=== PATIENT | female | born 1990 | race Caucasian/White ===

== ENCOUNTER 2021-04-07 11:49 | Day surgery (SDC) | payer BC ==
[2021-04-07 12:26] VITALS: TEMP 98.7
[2021-04-07] MEDS ORDERED: FERRIC CARBOXYMALTOSE 750 MG in SODIUM CHLORIDE 250 ML IVPB ONE (12:30)
[2021-04-07 13:23] VITALS: BP 94/45; PULSE 77
== END 2021-04-07 13:45 | disposition home or self-care (01) ==
LOC: FINFUSION 11:49
PROVIDERS: ATTEND Family Medicine
PROC: 3E033GC Introduction of Other Therapeutic Substance into Peripheral Vein, Percutaneous Approach (ICD-10-PCS; principal; 2021-04-07)
DX: D50.9 Iron deficiency anemia, unspecified (principal)
CPT/HCPCS: 96365; J1439

== ENCOUNTER 2021-04-29 10:48 | Day surgery (SDC) | payer BC ==
[2021-04-29] MEDS ORDERED: IRON SUCROSE INJECTION 200 MG/100 ML BAG IVPB ONE (11:15)
[2021-04-29 13:03] VITALS: BP 109/59; PULSE 85; TEMP 98.2
== END 2021-04-29 12:30 | disposition home or self-care (01) ==
LOC: FINFUSION 10:48 → FM/S 10:50 → FINFUSION 12:30
PROVIDERS: ATTEND Family Medicine
PROC: 3E033GC Introduction of Other Therapeutic Substance into Peripheral Vein, Percutaneous Approach (ICD-10-PCS; principal; 2021-04-29)
DX: D50.9 Iron deficiency anemia, unspecified (principal)
CPT/HCPCS: 96365; J1756

== ENCOUNTER 2021-05-21 17:18 | Emergency (ER) | payer BC ==
[2021-05-21 17:25] VITALS: BP 129/81; PULSE 85; TEMP 97.6; BMI 29.4
== END 2021-05-21 18:50 | disposition home or self-care (01) ==
LOC: JER 17:18
DX: O12.03 Gestational edema, third trimester (principal); Z3A.36 36 weeks gestation of pregnancy
CPT/HCPCS: 93971-TC; 99283-25

== ENCOUNTER 2021-06-07 11:40 | Inpatient (IN) | payer BC ==
[2021-06-08] MEDS: ELECTROLYTE-148 SOLN 1,000 ML IV SCH (00:45)
[2021-06-08 00:51] VITALS: BMI 30.4
[2021-06-08] MEDS ORDERED: LIDOCAINE HCL 1% PRESERVATIVE FREE - 30ML VIAL ONE (01:20)
[2021-06-08] MEDS ORDERED: OXYTOCIN 20 UNITS in 0.9% NS 20 UNIT/1,000 ML INFUS.BAG IV ONE (01:21)
[2021-06-08] MEDS ORDERED: FENTANYL/BUPIVACAINE/NS/PF - PCEA - 50 ML DISP.SYRIN EP ONE (01:27)
[2021-06-08] MEDS ORDERED: BUPIVACAINE HCL/PF 0.25% (2.5MG/ML) 10 ML VIAL ONE (01:28)
[2021-06-08] MEDS: FENTANYL/BUPIVACAINE/NS/PF - PCEA - 50 ML DISP.SYRIN EP SCH (01:45)
[2021-06-08] MEDS ORDERED: OXYTOCIN 30 UNITS in 0.9% NS 30 UNIT/500 ML INFUS.BAG IVPB ONE (02:40)
[2021-06-08] MEDS: OXYTOCIN 30 UNITS in 0.9% NS 30 UNIT/500 ML INFUS.BAG IVPB SCH (02:45)
[2021-06-08] MEDS ORDERED: WITCH HAZEL 50% (TUCKS) 40 PAD/JAR PAD TP PRN (05:11)
[2021-06-08] MEDS ORDERED: oxyCODONE HCL 5 MG TABLET PO PRN (05:11)
[2021-06-08] MEDS ORDERED: BISACODYL 10 MG SUPP.RECT RC PRN (05:11)
[2021-06-08] MEDS ORDERED: BENZOCAINE 28 GM HEMORRHOIDAL OINTMENT TP PRN (05:11)
[2021-06-08] MEDS ORDERED: BENZOCAINE 20% 57 GM BOTTLE TP PRN (05:11)
[2021-06-08] MEDS ORDERED: ACETAMINOPHEN 325 MG TABLET (FP) PO PRN (05:11)
[2021-06-08] MEDS ORDERED: METHYLERGONOVINE MALEATE 0.2 MG/1 ML AMP IM PRN (05:11)
[2021-06-08] MEDS ORDERED: OXYTOCIN 20 UNITS in 0.9% NS 20 UNIT/1,000 ML INFUS.BAG IV SCH (05:15)
[2021-06-08 05:24] LABS: CALCIUM 8.9 mg/dL (8.5-10.1); CREATININE 0.4 mg/dL (0.55-1.3)
[2021-06-08] MEDS ORDERED: NALOXONE HCL 0.4 MG/ML VIAL IVPUSH PRN (05:31)
[2021-06-08 05:52] LABS: BASO % 0.3 % (0-2.0); EOS % 0.2 % (0-4.5); HEMATOCRIT 35.2 % (32.4-45.2); HEMOGLOBIN 11.4 GM/dL (10.7-15.3); MCHC 32.5 g/dl (32.0-36.0); MEAN CELL VOLUME 60.3 fl (80-96); MEAN PLT VOLUME 8.4 fl (7.5-11.1); MONO % 4.5 % (3.8-10.2); PLATELET COUNT 192 10^3/uL (134-434); RBC 5.83 M/mm3 (3.60-5.2); RDW 17.3 % (11.6-15.6)
[2021-06-08 07:23] LABS: MCH 19.6 pg (25.7-33.7)
[2021-06-08] MEDS: PRENATAL VITAMINS W/ FOLIC ACID TABLET (FP) PO SCH (09:01)
[2021-06-08] MEDS: IBUPROFEN 600 MG TABLET (FP) PO PRN ×2 (09:01→16:08)
[2021-06-08 14:05] LABS: ANISOCYTOSIS 2+; MACROCYTOSIS 0
[2021-06-08 19:52] LABS: INR 1.02 (0.83-1.09); PROTHROMBIN TIME (PATIENT) 11.7 SEC (9.7-13.0)
[2021-06-08 19:55] LABS: ACTIVATED PTT 27.2 SECONDS (25.2-36.5)
[2021-06-09] MEDS: IBUPROFEN 600 MG TABLET (FP) PO PRN ×2 (01:56→09:52)
[2021-06-09] MEDS: SENNOSIDES/DOCUSATE COMBO (SENNA PLUS) TABLET (UD) PO PRN ×2 (01:57→09:52)
[2021-06-09 07:21] LABS: BASO % 0.3 % (0-2.0); EOS % 0.6 % (0-4.5); HEMATOCRIT 27.3 % (32.4-45.2); HEMOGLOBIN 8.6 GM/dL (10.7-15.3); LYMPH % 20.1 % (8-40); MCHC 31.5 g/dl (32.0-36.0); MEAN CELL VOLUME 61.1 fl (80-96); MEAN PLT VOLUME 9.1 fl (7.5-11.1); MONO % 5.4 % (3.8-10.2); NEUT % 73.6 % (42.8-82.8); PLATELET COUNT 142 10^3/uL (134-434); RBC 4.48 M/mm3 (3.60-5.2); RDW 16.9 % (11.6-15.6); WHITE BLOOD COUNT 10.4 K/mm3 (4.0-10.0)
[2021-06-09 07:27] LABS: MCH 19.2 pg (25.7-33.7)
[2021-06-09] MEDS: PRENATAL VITAMINS W/ FOLIC ACID TABLET (FP) PO SCH (09:48)
[2021-06-09] MEDS: FERROUS SO4 325 MG TABLET (FP) PO SCH (19:21)
[2021-06-09] MEDS: OXYTOCIN 30 UNITS in 0.9% NS 30 UNIT/500 ML INFUS.BAG IVPB SCH (19:51)
[2021-06-09] MEDS: ELECTROLYTE-148 SOLN 1,000 ML IV SCH (19:51)
[2021-06-09] MEDS: FENTANYL/BUPIVACAINE/NS/PF - PCEA - 50 ML DISP.SYRIN EP SCH (19:51)
[2021-06-10] MEDS: IBUPROFEN 600 MG TABLET (FP) PO PRN (01:36)
[2021-06-10 09:40] VITALS: TEMP 98.5
[2021-06-10] MEDS: FERROUS SO4 325 MG TABLET (FP) PO SCH (10:03)
[2021-06-10] MEDS: PRENATAL VITAMINS W/ FOLIC ACID TABLET (FP) PO SCH (10:03)
[2021-06-10 12:52] VITALS: BP 116/77; PULSE 103
[2021-06-10 16:11] LABS: CALCIUM 8.8 mg/dL (8.5-10.1)
[2021-06-10 16:12] LABS: BLOOD UREA NITROGEN 5.2 mg/dL (7-18)
[2021-06-10 16:15] LABS: CREATININE 0.5 mg/dL (0.55-1.3)
[2021-06-10 16:17] LABS: BILIRUBIN,TOTAL 0.3 mg/dL (0.2-1); TOT PROT 6.3 g/dl (6.4-8.2)
[2021-06-10 16:21] LABS: BASO % 0.4 % (0-2.0); EOS % 1.5 % (0-4.5); HEMATOCRIT 30.6 % (32.4-45.2); MCHC 32.7 g/dl (32.0-36.0); MEAN CELL VOLUME 60.7 fl (80-96); MEAN PLT VOLUME 8.3 fl (7.5-11.1); MONO % 5.1 % (3.8-10.2); PLATELET COUNT 211 10^3/uL (134-434); RBC 5.04 M/mm3 (3.60-5.2); RDW 16.7 % (11.6-15.6); WHITE BLOOD COUNT 11.5 K/mm3 (4.0-10.0)
[2021-06-10 16:43] LABS: MCH 19.9 pg (25.7-33.7)
== END 2021-06-10 20:01 | disposition home or self-care (01) | DRG 807 ==
LOC: JDEL 11:40 → JLDR 06-08 00:25 → J3W 06-08 06:15
PROVIDERS: ADMIT Obstetrics & Gynecology; ATTEND Obstetrics & Gynecology
PROC: 0KQM0ZZ Repair Perineum Muscle, Open Approach (ICD-10-PCS; principal; 2021-06-08)
PROC: 10E0XZZ Delivery of Products of Conception, External Approach (ICD-10-PCS; 2021-06-08)
DX: O70.1 Second degree perineal laceration during delivery (principal); Z37.0 Single live birth; Z3A.38 38 weeks gestation of pregnancy
CPT/HCPCS: 36415; 59409; 80048; 80053; 82728; 83540; 83550; 85025; 85461; 85610; 85730; 86780; 86850; 86900; 86901; 86999; C9803-CS; U0003; U0005